=== PATIENT | male | born 1970 | race Caucasian/White ===

== ENCOUNTER 2019-05-15 09:35 | Emergency (ER) | payer OTHER ==
[~2019-05-15] VITALS: Ht 182.9 cm; Wt 97.7 kg
[2019-05-15 09:44] VITALS: BP 131/85
[2019-05-15] MEDS ORDERED: TETanus/Pertussis (Acell)/Diphther VAC/PF (Tdap-Adult) 0.5ml syringe IMVAC ONE (10:45)
== END 2019-05-15 11:19 | disposition home or self-care (01) ==
LOC: ER 09:35
DX: S01.01XA Laceration without foreign body of scalp, initial encounter (principal); Z87.891 Personal history of nicotine dependence; Z72.89 Other problems related to lifestyle; W22.8XXA Striking against or struck by other objects, initial encounter; Y93.89 Activity, other specified; Y99.0 Civilian activity done for income or pay; Y92.89 Other specified places as the place of occurrence of the external cause
CPT/HCPCS: 12002; 90471; 90715; 99283